=== PATIENT | male | born 1960 | race Caucasian/White ===

== ENCOUNTER 2017-11-26 11:05 | Observation (INO) | payer BC ==
[~2017-11-26] VITALS: Ht 180.3 cm; Wt 114.0 kg
[2017-11-26] VITALS (7 sets, daily range): BP systolic 168–226; BP diastolic 87–111
--- NOTE | 2017-11-26 11:26 | NUR ---
PATIENT AMBULATED TO ROOM WITH STEADY GAIT AND PHYSICIAN NOTIFIED OF PATIENT STATUS
[2017-11-26 12:01] LABS: HEMATOCRIT 42.3 % (39.0-50.0); HEMOGLOBIN 14.5 g/dl (14.0-18.0); IMMATURE GRANULOCYTES 0.3 % (0.0-1.0); MEAN CELL VOLUME 93.6 fL CALC (80.0-100.0); MEAN CORPUSCULAR HGB 32.1 pG CALC (26.0-32.0); MEAN CORPUSCULAR HGB CONC 34.3 g/L CALC (32.0-36.0); NEUT# 5.71 thou/uL (1.82-7.42); RED BLOOD COUNT 4.52 mill/uL (4.70-6.10)
[2017-11-26 12:21] LABS: ANION GAP 14 (6-22 (CALC)); BUN 11 mg/dL (9-20); BUN/CREATININE RATIO 14 (12-20 (CALC)); CARBON DIOXIDE 29 mmol/l (22-30); CHLORIDE 102 mmol/l (95-108); CREATININE 0.8 mg/dL (0.7-1.3); GFR > 60 ML/MIN (>=60 (CALC)); GFR FOR AFR.AMER. > 60 ML/MIN (>=60 (CALC)); POTASSIUM 3.7 mmol/l (3.5-5.1); SODIUM 142 mmol/l (137-146)
--- NOTE | 2017-11-26 12:30 | NUR ---
PT ABLE TO STAND AND USE URINAL WITHOUT ASSIST. IV SITE HEALTHY.
--- NOTE | 2017-11-26 13:27 | NUR ---
PT MEDICATED PO AND IV FOR CONTINUED ELEVATED BP. CALL LIGHT IWCONSTANTIN CARTWRIGHT.
--- NOTE | 2017-11-26 14:05 | NUR ---
BP 187/97 PT UP FREQUENTLY USING URINAL. VOIDED APPROX 1000 ML YELLOW URINE.
--- NOTE | 2017-11-26 14:13 | NUR ---
PT AWARE OF ADMISSION POC.
--- NOTE | 2017-11-26 14:25 | NUR ---
ATTEMPT TO CALL REPORT. NURSE UNAVAILABLE AT THIS TIME.
--- NOTE | 2017-11-26 15:26 | NUR ---
REPORT PROVIDED TO JACKLYN LANZA. 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 NO APPARENT DISTRESS. IV SITE HEALTHY.
--- NOTE | 2017-11-26 15:34 | NUR ---
male pt received to ICU ([facility]) bed 8 via wc accompanied by Sanford Lopez RN in stable condition; ambulatory to scale then bed with steady gait; admission assessment completed at this time; pt c/c went to the clinic for eye infection and clinic staff notified BP was elevated; pt also with complaints of headache; pt alert and oriented; resp even and unlabored; lungs clear; skin color wnl; ra; hr irreg; strong pulses; no edema noted; afib on monitor; abd soft with bs present; no bm noted per sheet writer; pt admits to voiding without pain or burning; no urine to inspect at this time; #20 in rac flushed and patent; no redness or edema noted at site; plan of care/flush explained; pt oriented to bed and call light system; will continue to monitor
--- NOTE | 2017-11-26 16:08 | NUR ---
pt awake in bed; parents at bedside; pt offers complaints of headache; iv intact; call light within reach; will continue to monitor
--- NOTE | 2017-11-26 17:40 | NUR ---
Dr Richards on unit; informed of elevated bp and rhythm changes; pt currently sr 1st avb; afib strip shown to
--- NOTE | 2017-11-26 18:04 | NUR ---
awake in bed; admits to some relief from tylenol; continues with headache; sr on monitor; iv intact; no redness or edema noted at site; ra; meds explained and administered; pt eating dinner; bed in lowest position; call light within reach
--- NOTE | 2017-11-26 19:00 | NUR ---
awake. denies c/o. admits he takes bp meds daily as ordered. equipment monitor phototypesetting shows sinus rhythm 1st degree avb baldo leach. #20 rac saline lock. po fluids taken well. voids per bathroom. fall precautions cont.
--- NOTE | 2017-11-26 22:00 | NUR ---
bp 190/100. hydralizine 10mg ivp given.
--- NOTE | 2017-11-26 22:45 | NUR ---
bp 160/80.
--- NOTE | 2017-11-27 00:01 | NUR ---
eyes closed. no distress. 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
--- NOTE | 2017-11-27 03:15 | NUR ---
bp 200/110. c/o h/a. tylenol 650mg po given. hydralizine 10mg ivp given.
--- NOTE | 2017-11-27 03:50 | NUR ---
bp 180/90. catapres 0.1mg po given.
--- NOTE | 2017-11-27 06:10 | NUR ---
bp 170/90. denies h/a.
--- NOTE | 2017-11-27 07:30 | NUR ---
PT ALERT AND ORIENTED, COMPLAINS OF HEQADACHE, BP MANUALLY 130/60, AM ASSESSMENT COMPLETED SEE INTERVENTIONS, DENIES ANY OTHER COMPLAINTS, TELE READING SR WITH FIRST DEGREE BLOCK AND OCCASIONAL ARRHTYMIA NOTED, AFEBRILE, COMFORT MEASURES PROVIDED, SET UP ASSIST PROVIDED FOR AM MEAL, CALL BLAKE WITHIN REACH, WILL CONTINUE TO MONITOR.
[2017-11-27 08:00] VITALS: BP 130/60
--- NOTE | 2017-11-27 09:45 | NUR ---
PT RESTING IN BED, OFFERS NO NEW COMPLAINTS, CALL BLAKE WITHIN REACH, FAMILY MEMBERS AT BEDSIDE, WILL CONTINUE TO MONITOR.
--- NOTE | 2017-11-27 10:22 | NUR ---
PT STATES HEADACHE IMPROVED, PARENTS REMAIN AT BEDSIDE, OFFERS NO NEW COMPLAINTS, CALL BLAKE WITHIN REACH
--- NOTE | 2017-11-27 10:54 | NUR ---
IN TO SEE PATIENT, OFFERS NO NEW COMPLAINTS, ON CONSULT RELATED TO ARRHYTMIAS, PT AND FAMILY AWARE.
[2017-11-27 11:27] LABS: BUN 11 mg/dL (9-20); BUN/CREATININE RATIO 15 (12-20 (CALC)); CARBON DIOXIDE 28 mmol/l (22-30); CHLORIDE 97 mmol/l (95-108); CREATININE 0.8 mg/dL (0.7-1.3); GFR > 60 ML/MIN (>=60 (CALC)); GFR FOR AFR.AMER. > 60 ML/MIN (>=60 (CALC)); SODIUM 138 mmol/l (137-146)
[2017-11-27 11:28] LABS: ANION GAP 16 (6-22 (CALC)); POTASSIUM 2.8 mmol/l (3.5-5.1)
[2017-11-27 11:29] LABS: CHOLESTEROL HDL RATIO 3.3 (<4.4 (CALC))
[2017-11-27 12:00] VITALS: BP 140/80
--- NOTE | 2017-11-27 12:53 | NUR ---
INTO SEE PT, PLAN OF CARE DISCUSSED
--- NOTE | 2017-11-27 13:17 | NUR ---
POTASSIUM IV STARTED ORDERED, PT TOOK PO SUPPLEMENT WITHOUT INCIDENT, CALL BLAKE WITHIN REACH.
--- NOTE | 2017-11-27 14:08 | NUR ---
SOME EKG CHANGES NOTED, NOTIFIED AND COPIES SENT TO HIM FOR EVAL, CALL BLAKE WITHIN REACH
--- NOTE | 2017-11-27 14:39 | NUR ---
PT RESTING CONTINUES TO TOLERATE POTASSIUM IV ORDERED, FAMILY MEMBERS IN EARLIER AND GONE AT THIS TIME, AWWARE OF UNCERTAIN D/C PLAN, WILL CONTINUE TO MONITOR.
[2017-11-27 16:00] VITALS: BP 171/85
--- NOTE | 2017-11-27 16:35 | NUR ---
PT RESTING INBED, ALERT AND ORIENTED CONTINEUS TO TOLERATE POTASSIUM IV ORDERED, BP 171/85, PT DENIES HEADACHE, CALL BLAKE WITHIN REACH, AMBULATES TO BATHROOM WITH STEADY GAIT PRN, USES URINAL IN BATHROOM FOR ACCURATE I&O, CALL BLAKE WITHIN REACH
[2017-11-27] MEDS ORDERED: NORVASC10 M1 PO (17:12)
[2017-11-27] MEDS ORDERED: LISINOPRIL20 M1 PO (17:12)
[2017-11-27] MEDS ORDERED: ASPIRIN CHEWABL81 MG PO (17:12)
[2017-11-27] MEDS ORDERED: KLOR-CON M2020 MEQ PO (18:01)
--- NOTE | 2017-11-27 18:46 | NUR ---
Discharge instructions given. Patient verbalizes understanding of same. Discharged in stable condition via Wheelchair to Home with family. All belongings sent with pt. SCRIPTS FOR MEDICATIONS SENT WITH PATIENT
== END 2017-11-27 18:50 | disposition home or self-care (01) | DRG 305 ==
LOC: ED 11:05 → ED-I 13:28 → ED 14:10 → ICU 14:11
PROVIDERS: Family Medicine; ADMIT Internal Medicine; ATTEND Internal Medicine
DX: I16.0 Hypertensive urgency (principal); I48.91 Unspecified atrial fibrillation; I10 Essential (primary) hypertension; E66.9 Obesity, unspecified; J32.4 Chronic pansinusitis; Z87.891 Personal history of nicotine dependence; Z68.35 Body mass index [BMI] 35.0-35.9, adult